=== PATIENT | female | born 1995 | race Caucasian/White ===

== ENCOUNTER 2017-10-26 13:09 | Emergency (ER) | payer OTHER ==
[~2017-10-26] VITALS: Ht 165.1 cm; Wt 80.5 kg
[~2017-10-26 13:09] MED LIST: ATA10 PO; LORA10TA19 PO
[2017-10-26 13:18] VITALS: BP 123/68
--- NOTE | 2017-10-26 13:23 | NUR ---
PT AMBULATED TO CHAIR C.
--- NOTE | 2017-10-26 13:28 | NUR ---
22F C/O COUGH AND WHEEZING X 4 DAYS. PATIENT STATES COUGH AND FEVER STARTED MONDAY. C/O NAUSEA; SKIN IS PINK/WARM/DRY; AAOX4 WITH EVEN AND STEADY GAIT; LUNGS CLEAR BL; HR EVEN AND REGULAR; PT DENIES ANY CP AT THIS TIME; PATIENT STATES PAIN OF 0/10 AT THIS TIME; VSS; PATIENT POSITIONED FOR COMFORT. ER MD MADE AWARE OF PT STATUS.
[2017-10-26] MEDS ORDERED: ALBUTEROL SULFATE/IPRATROPIU 3 ML SOL IH ONE (13:35)
[2017-10-26 14:26] VITALS: BP 123/68
--- NOTE | 2017-10-26 14:27 | NUR ---
Patient discharged with v/s stable. Written and verbal after care instructions given and explained. Patient alert, oriented and verbalized understanding of instructions. Ambulatory with steady gait. All questions addressed prior to discharge. ID band removed. Patient advised to follow up with PMD. Rx of TESSALON, ALBUTEROL given. Patient educated on indication of medication including possible reaction and side effects. Opportunity to ask questions provided and answered.
== END 2017-10-26 14:27 | disposition home or self-care (01) ==
LOC: MED 13:09
DX: J20.9 Acute bronchitis, unspecified (principal); Z88.0 Allergy status to penicillin
CPT/HCPCS: 94640; 94760; 99283; J7620

== ENCOUNTER 2019-04-24 16:22 | Emergency (ER) | payer OTHER ==
[~2019-04-24] VITALS: Ht 165.1 cm; Wt 68.0 kg
[2019-04-24 16:26] VITALS: BP 119/69
--- NOTE | 2019-04-24 17:28 | NUR ---
PT AMBULATORY TO [facility]
--- NOTE | 2019-04-24 17:54 | NUR ---
PT BIB SELF FOR SORETHROAT , CHILLS, AND GEN WEAKNESS FOR PAST FEW DAYS. PT HAS BEEN TAKING IBUPORFEN OTC W/O RELIEF. PT AWAKE AND SITTING IN CHAIR APPEARS TO BE IN NO ACUTE DISTRESS.
--- NOTE | 2019-04-24 17:55 | NUR ---
THROAT SWABS COLLECTED FOR LAB.
[2019-04-24] MEDS ORDERED: DEXAMETHASONE 10 MG/ML VIAL IM ONE (18:30)
[2019-04-24] MEDS ORDERED: ACETAMINOPHEN EXTRA STRENGTH 500 MG TAB PO ONE (18:30)
--- NOTE | 2019-04-24 19:37 | NUR ---
Patient discharged with v/s stable. Written and verbal after care instructions given and explained. Patient alert, oriented and verbalized understanding of instructions. Ambulatory with steady gait. All questions addressed prior to discharge. ID band removed. Patient advised to follow up with PMD. Rx of IBUPROFEN, CLINDAMYCIN given. Patient educated on indication of medication including possible reaction and side effects. Opportunity to ask questions provided and answered.
[2019-04-24 19:38] VITALS: BP 122/71
== END 2019-04-24 19:38 | disposition home or self-care (01) ==
LOC: MED 16:22
DX: J02.8 Acute pharyngitis due to other specified organisms (principal); B97.89 Other viral agents as the cause of diseases classified elsewhere; J45.909 Unspecified asthma, uncomplicated; Z79.899 Other long term (current) drug therapy; Z88.0 Allergy status to penicillin
CPT/HCPCS: 87081; 96372; 99283; J1100

== ENCOUNTER 2019-05-01 19:53 | Emergency (ER) | payer OTHER ==
[~2019-05-01] VITALS: Ht 165.1 cm; Wt 70.3 kg
[2019-05-01 20:17] VITALS: BP 137/86
--- NOTE | 2019-05-01 20:20 | NUR ---
PT AMBULATED TO LOBBY. PROVIDING URINE.
[2019-05-01 21:02] LABS: BASOPHILS # (AUTO) 0.1 K/uL (0.00-0.22); BASOPHILS % (AUTO) 0.7 % (0.0-2.0); EOSINOPHILS # (AUTO) 0.2 K/uL (0-0.4); EOSINOPHILS % (AUTO) 2.5 % (0.0-4.0); HEMATOCRIT 43.9 % (36-48); HEMOGLOBIN 15.2 g/dL (12.0-16.0); LYMPHOCYTES # (AUTO) 3.1 K/uL (2.5-16.5); LYMPHOCYTES % (AUTO) 34.7 % (20.5-51.1); MEAN CORPUSCULAR HEMOGLOBIN 33 pg (27-31); MEAN CORPUSCULAR HGB CONC 35 g/dL (33-37); MEAN CORPUSCULAR VOLUME 94.3 fL (80-94); MONOCYTES # (AUTO) 0.7 K/uL (0.8-1.0); NEUTROPHILS # (AUTO) 4.8 K/uL (1.8-7.7); NEUTROPHILS % (AUTO) 54.1 % (42.2-75.2); PLATELET COUNT (AUTO) 228 K/uL (140-450); RED BLOOD CELL COUNT(AUTO) 4.66 MIL/uL (4.20-5.40); RED CELL DISTRIBUTION WIDTH 12.4 % (11.6-13.7); WHITE BLOOD COUNT (AUTO) 8.9 K/uL (4.8-10.8)
[2019-05-01 21:04] LABS: APPEARANCE,URINE CLEAR (CLEAR); BILIRUBIN,URINE NEGATIVE (NEGATIVE); BLOOD, URINE NEGATIVE (NEGATIVE); COLOR,URINE YELLOW (YELLOW); LEUKOCYTE ESTERASE ,URINE NEGATIVE (NEGATIVE); NITRITE, URINE NEGATIVE (NEGATIVE); UGLUCOSE NEGATIVE (NEGATIVE)
--- NOTE | 2019-05-01 21:19 | NUR ---
PATIENT AMBULATED TO ER BED 8
[2019-05-01 21:23] LABS: CARBON DIOXIDE 28.9 mmol/L (21-32); CREATININE 0.7 mg/dL (0.6-1.3); POTASSIUM 3.9 mmol/L (3.5-5.1)
[2019-05-01 21:24] LABS: ALBUMIN 3.5 g/dL (3.4-5.0); TOTAL BILIRUBIN 0.4 mg/dL (0.0-1.0)
--- NOTE | 2019-05-01 21:30 | NUR ---
23 Y/O FEMALE PRESENTS TO ED, C/O ABDOMINAL ACHING PAIN X 1 WEEK 03/30. PT STATES PAIN DOES NOT RADIATE. PAIN ON PALPATION. C/O OF CONSTIPATION X 1 DAY. PT DENIES N/V/D. BS ACTIVE ON ALL QUADRANTS. PT VSS. ERMD AWARE. WILL CONTINUE TO MONITOR.
[2019-05-01] MEDS: SODIUM CHLORIDE FLUSH 10 ML SYR IVF STA (21:43)
--- NOTE | 2019-05-01 21:48 | NUR ---
Oscar salazar in [facility] - 05/01/19 at [address] Vernon examining patient.
--- NOTE | 2019-05-01 21:50 | NUR ---
Dr. Vernon examining patient.
--- NOTE | 2019-05-01 22:21 | NUR ---
PT BACK FROM RADIOLOGY
--- NOTE | 2019-05-01 22:37 | NUR ---
Dr. Vernon examining patient.
[2019-05-01 23:09] VITALS: BP 131/75
--- NOTE | 2019-05-01 23:09 | NUR ---
PT DISCHARGED WITH PAPERWORK. RX LACTULOSE, MINERAL OIL. EDUCATED PT REGARDING MEDICATIONS AND S/E. EDUCATED PT REGARDING D/C DIAGNOSIS AND INSTRUTIONS. PT VERBALIZED UNDERSTANDING OF TEACHING. TOLD PT TO FOLLOW UP WITH PCP AND WHEN TO RETURN TO ED. PT VSS. ERMD AWARE. WILL CONTINUE TO MONITOR.
== END 2019-05-01 23:09 | disposition home or self-care (01) ==
LOC: MED 19:53
DX: K59.00 Constipation, unspecified (principal); J45.909 Unspecified asthma, uncomplicated; Z88.0 Allergy status to penicillin; Z79.899 Other long term (current) drug therapy
CPT/HCPCS: 36415; 74022; 80053; 81003; 81025; 83690; 85025; 99284

== ENCOUNTER 2019-08-25 11:32 | Emergency (ER) | payer OTHER ==
[~2019-08-25] VITALS: Ht 165.1 cm; Wt 68.0 kg
[2019-08-25 12:05] VITALS: BP 115/74
--- NOTE | 2019-08-25 12:44 | NUR ---
Patient ambulated to bed 7. RN evaluating patient at bedside.
--- NOTE | 2019-08-25 13:00 | NUR ---
23/F presents to ED with complaints of cough, and sore throat since Monday, x2 days ago. Lungs clear bilaterally.
--- NOTE | 2019-08-25 13:04 | NUR ---
Patient taken to XRAY via wheelchair by tech.
--- NOTE | 2019-08-25 13:15 | NUR ---
Patient returned from x-ray and placed in bed 7.
[2019-08-25] MEDS ORDERED: KETOROLAC 60 MG/2 ML VIAL IM ONE (14:05)
--- NOTE | 2019-08-25 15:24 | NUR ---
DR CHAIREZ AT BEDSIDE.
[2019-08-25 15:37] VITALS: BP 120/69
--- NOTE | 2019-08-25 15:37 | NUR ---
Patient discharged with v/s stable. Written and verbal after care instructions given and explained. Patient alert, oriented and verbalized understanding of instructions. Ambulatory with steady gait. All questions addressed prior to discharge. ID band removed. Patient advised to follow up with PMD. Rx of PREDNISONE, MOTRIN given. Patient educated on indication of medication including possible reaction and side effects. Opportunity to ask questions provided and answered.
== END 2019-08-25 15:37 | disposition home or self-care (01) ==
LOC: MED 11:32
DX: J45.909 Unspecified asthma, uncomplicated (principal); Z79.899 Other long term (current) drug therapy; Z88.0 Allergy status to penicillin
CPT/HCPCS: 71046; 96372; 99283; J1885

== ENCOUNTER 2021-03-14 18:28 | Emergency (ER) | payer OTHER ==
[~2021-03-14] VITALS: Ht 165.1 cm; Wt 79.8 kg
[2021-03-14 18:40] VITALS: BP 126/87
[2021-03-14] MEDS ORDERED: DICYCLOMINE HCL LIQUID 20 MG, ALUMINUM HYD/MAG/SIMETHICONE 30 ML, LIDOCAINE VISCOUS 2% ... PO ONE ×3 (19:15)
[2021-03-14] MEDS ORDERED: PANTOPRAZOLE 40 MG TABEC PO ONE (19:15)
--- NOTE | 2021-03-14 19:30 | NUR ---
ENDORSED PT TO TORCH SHEARER NURSE FOR CONTINUITY OF CARE. PT IS STABLE.
--- NOTE | 2021-03-14 19:30 | NUR ---
25 Y/O FEMALE C/O N/V/D [id number] AND DIFFUSED ABD PAIN 02/27 DESCRIBES CRAMPING/RUMBLING. DENIES FEVER/CHILLS/PAINFUL URINATION. DENIES TAKING RX. DENIES PMH ALLERGIES: DONOVAN
[2021-03-14] MEDS ORDERED: DICYCLOMINE HCL LIQUID 10 MG/5 ML UDC ONE (19:33)
[2021-03-14] MEDS ORDERED: ALUMINUM HYD/MAG/SIMETHICONE 30 ML UDC ONE ×2 (19:33→19:36)
[2021-03-14 19:55] LABS: BASOPHILS # (AUTO) 0.1 K/uL (0.00-0.22); BASOPHILS % (AUTO) 0.8 % (0.0-2.0); EOSINOPHILS # (AUTO) 0.2 K/uL (0-0.4); EOSINOPHILS % (AUTO) 3.2 % (0.0-4.0); HEMATOCRIT 42.1 % (36-48); HEMOGLOBIN 14.7 g/dL (12.0-16.0); LYMPHOCYTES # (AUTO) 2.5 K/uL (2.5-16.5); LYMPHOCYTES % (AUTO) 34.3 % (20.5-51.1); MEAN CORPUSCULAR HEMOGLOBIN 34 pg (27-31); MEAN CORPUSCULAR HGB CONC 35 g/dL (33-37); MEAN CORPUSCULAR VOLUME 96.3 fL (80-94); MONOCYTES # (AUTO) 0.7 K/uL (0.8-1.0); MONOCYTES % (AUTO) 9.7 % (1.7-9.3); NEUTROPHILS # (AUTO) 3.9 K/uL (1.8-7.7); PLATELET COUNT (AUTO) 224 K/uL (140-450); RED BLOOD CELL COUNT(AUTO) 4.37 MIL/uL (4.20-5.40); RED CELL DISTRIBUTION WIDTH 13.4 % (11.6-13.7); WHITE BLOOD COUNT (AUTO) 7.4 K/uL (4.8-10.8)
[2021-03-14 20:13] LABS: ALBUMIN 3.6 g/dL (3.4-5.0); ANION GAP 10.7 (8-16); CARBON DIOXIDE 25.9 mmol/L (21-32); CREATININE 0.7 mg/dL (0.6-1.3); POTASSIUM 3.6 mmol/L (3.5-5.1); TOTAL BILIRUBIN 0.6 mg/dL (0.0-1.0)
[2021-03-14 20:13] LABS: APPEARANCE,URINE CLEAR (CLEAR); BILIRUBIN,URINE NEGATIVE (NEGATIVE); BLOOD, URINE NEGATIVE (NEGATIVE); COLOR,URINE YELLOW (YELLOW); LEUKOCYTE ESTERASE ,URINE NEGATIVE (NEGATIVE); NITRITE, URINE NEGATIVE (NEGATIVE); UGLUCOSE NEGATIVE (NEGATIVE)
--- NOTE | 2021-03-14 21:50 | NUR ---
Dr. Hwang examining patient.
[2021-03-14] MEDS ORDERED: PANT40EC PO (21:52)
[2021-03-14] MEDS ORDERED: MAGNESIUM CITRATE 300 ML BTL PO ONE (21:55)
[2021-03-14] MEDS ORDERED: MAGNESIUM CITRATE 300 ML BTL ONE (21:56)
--- NOTE | 2021-03-14 22:02 | NUR ---
Patient discharged with v/s stable. Written and verbal after care instructions given and explained. Patient alert, oriented and verbalized understanding of instructions. Ambulatory with steady gait. All questions addressed prior to discharge. ID band removed. Patient advised to follow up with PMD. Rx of PROTONIX given. Patient educated on indication of medication including possible reaction and side effects. Opportunity to ask questions provided and answered.
== END 2021-03-14 22:02 | disposition home or self-care (01) ==
LOC: MED 18:28
DX: R10.84 Generalized abdominal pain (principal); R11.2 Nausea with vomiting, unspecified; R14.0 Abdominal distension (gaseous); J45.909 Unspecified asthma, uncomplicated; Z88.0 Allergy status to penicillin; Z79.899 Other long term (current) drug therapy
CPT/HCPCS: 36415; 76705; 80053; 81003; 81025; 83690; 85025; 99284

== ENCOUNTER 2024-02-17 20:52 | Emergency (ER) | payer OTHER ==
[~2024-02-17 20:52] MED LIST changes: +PANT40EC PO
== END 2024-02-17 20:59 | disposition left against medical advice (07) ==
LOC: MED 20:52
DX: R51.9 Headache, unspecified (principal); R42 Dizziness and giddiness; Z53.21 Procedure and treatment not carried out due to patient leaving prior to being seen by health care provider

== ENCOUNTER 2024-02-20 11:39 | Emergency (ER) | payer OTHER ==
[~2024-02-20] VITALS: Ht 165.1 cm; Wt 75.4 kg
[2024-02-20 12:01] VITALS: BP 114/79; PULSE 87; RESP 18; TEMP 97.7; O2SAT 97
[2024-02-20] MEDS ORDERED: KETO120S5 TP (12:48)
[2024-02-20] MEDS ORDERED: KEN.5C TP (12:48)
[2024-02-20 13:29] VITALS: BP 114/79; PULSE 87; RESP 18; TEMP 97.7; O2SAT 97
== END 2024-02-20 13:29 | disposition home or self-care (01) ==
LOC: MED 11:39
DX: L21.9 Seborrheic dermatitis, unspecified (principal); R03.0 Elevated blood-pressure reading, without diagnosis of hypertension; J45.909 Unspecified asthma, uncomplicated; Z79.1 Long term (current) use of non-steroidal anti-inflammatories (NSAID); Z79.2 Long term (current) use of antibiotics; Z79.899 Other long term (current) drug therapy; Z88.0 Allergy status to penicillin
CPT/HCPCS: 99283